=== PATIENT | male | born 1945 | race Hispanic/Latino ===

== ENCOUNTER → 2018-11-20 | Outpatient (CLI) | payer OTHER ==
[~2018-11-20] VITALS: Ht 170.2 cm; Wt 82.1 kg
[~2018-11-20] MED LIST: AEC81 PO; ATOR40TA69 PO; DOXA2TAB2 PO; DUTA.5 PO; EPLE25TA10 PO; FLUT1AER IH; FURO-151 PO; GLIP5TAB11 PO; LINA145C PO; LISI2.5T2 PO; METO-391 PO; NITR0.4T50 SL; OMEP10SU2 PO; REGADENOSON 0.4 MG/5 ML PF SYG IVP SCH; SACU1TAB PO; VENL150T3 PO
== END | disposition home or self-care (01) ==
LOC: SHCH 08:35
PROVIDERS: ATTEND Internal Medicine Cardiovascular Disease
DX: I21.19 ST elevation (STEMI) myocardial infarction involving other coronary artery of inferior wall (principal)
CPT/HCPCS: 78452; 93017; 96374; A9500 ×2; J2785

== ENCOUNTER 2019-11-28 05:57 | Day surgery (SDC) | payer OTHER ==
[2019-11-28] VITALS (9 sets, daily range): BP systolic 58–118; BP diastolic 26–68
[~2019-11-28 05:57] MED LIST changes: -REGADENOSON 0.4 MG/5 ML PF SYG IVP SCH
[2019-11-28] MEDS ORDERED: SODIUM CHLORIDE 0.9% 1000ML 1,000 ML IV ONE (06:08)
[2019-11-28] MEDS ORDERED: ACET-66 PO (07:28)
[2019-11-28] MEDS ORDERED: ALBU90AE IH (07:28)
[2019-11-28] MEDS ORDERED: FAMO40TA7 PO (07:28)
[2019-11-28] MEDS ORDERED: FLUT16H NASAL (07:28)
[2019-11-28] MEDS ORDERED: NAPR-1023 PO (07:28)
[2019-11-28] MEDS ORDERED: ESCI10TA PO (07:28)
[2019-11-28] MEDS ORDERED: UMEC1DIS IH (07:28)
[2019-11-28] MEDS ORDERED: GLIP2.5T PO (07:28)
[2019-11-28] MEDS ORDERED: METO-408 PO (07:30)
[2019-11-28] MEDS ORDERED: PROPOFOL 10 MG/ML 20ML VIAL IV ONE (08:20)
[2019-11-28] MEDS ORDERED: MIDAZOLAM HCL 1 MG/ML 2ML VIAL ONE (08:27)
--- NOTE | 2019-11-28 08:47 | NUR ---
PT DIFFICULT TO AROUSE..BP LOW. I HAVE CALLED RADHA SAW SUPERINTENDENT
--- NOTE | 2019-11-28 08:50 | NUR ---
RADHA ASPHALT SMOOTHER NOTIFIED AND AT BEDSIDE NOW. PT HAD LOW BP AND WAS STILL DROWSY . RADHA ASPHALT SMOOTHER INTERVENED
--- NOTE | 2019-11-28 09:35 | NUR ---
PT DISCHARGED HOME WITH . I GAVE THEM BOTH PRINTED AND VERBAL DISCHARGE INSTRUCTIONS . VERBALIZED UNDERSTANDING. PT STATUS IMPROVED-STABLE
== END 2019-11-28 09:35 | disposition home or self-care (01) ==
LOC: DAH 05:57 → ENDO 05:57
PROVIDERS: ATTEND Internal Medicine Gastroenterology
DX: K59.04 Chronic idiopathic constipation (principal); Z20.828 Contact with and (suspected) exposure to other viral communicable diseases; D12.3 Benign neoplasm of transverse colon; K64.0 First degree hemorrhoids; K57.30 Diverticulosis of large intestine without perforation or abscess without bleeding; K21.9 Gastro-esophageal reflux disease without esophagitis; K44.9 Diaphragmatic hernia without obstruction or gangrene; I11.0 Hypertensive heart disease with heart failure; I50.9 Heart failure, unspecified; I25.10 Atherosclerotic heart disease of native coronary artery without angina pectoris; J44.9 Chronic obstructive pulmonary disease, unspecified; Z95.5 Presence of coronary angioplasty implant and graft; Z86.010 Personal history of colon polyps; Z79.82 Long term (current) use of aspirin; Z79.899 Other long term (current) drug therapy; Z11.59 Encounter for screening for other viral diseases
CPT/HCPCS: 36415; 45385; 82948 ×2; 88305; 93005; A4215; A4221; A4222; A4223; A4606; A4620; A4657; A4663; J2250; J2704; J7030; U0003; 43200

== ENCOUNTER → 2020-09-16 | Outpatient (CLI) | payer OTHER ==
[~2020-09-16] MED LIST changes: +ACET-66 PO; +ALBU90AE IH; -DOXA2TAB2 PO; -DUTA.5 PO; -EPLE25TA10 PO; +ESCI10TA PO; +FAMO40TA7 PO; +FLUT16H NASAL; -FLUT1AER IH; +GLIP2.5T PO; -GLIP5TAB11 PO; +IOHEXOL 350 MG/ML 100ML INFUS..BTL IV ONE; +IOHEXOL-350 50ML VIAL IV ONE; -LISI2.5T2 PO; -METO-391 PO; +METO-408 PO; +NAPR-1023 PO; -NITR0.4T50 SL; -OMEP10SU2 PO; +UMEC1DIS IH; -VENL150T3 PO
== END | disposition home or self-care (01) ==
LOC: RAH 07:32
PROVIDERS: ATTEND Internal Medicine Cardiovascular Disease
DX: I70.0 Atherosclerosis of aorta (principal); I70.8 Atherosclerosis of other arteries; I70.201 Unspecified atherosclerosis of native arteries of extremities, right leg; K76.89 Other specified diseases of liver; K57.30 Diverticulosis of large intestine without perforation or abscess without bleeding
CPT/HCPCS: 75635; Q9967 ×2

== ENCOUNTER → 2021-10-12 | Outpatient (CLI) | payer OTHER ==
[~2021-10-12] VITALS: Ht 170.2 cm; Wt 87.5 kg
[~2021-10-12] MED LIST changes: -IOHEXOL 350 MG/ML 100ML INFUS..BTL IV ONE; -IOHEXOL-350 50ML VIAL IV ONE; +REGADENOSON 0.4 MG/5 ML PF SYG IVP SCH
== END ==
LOC: SHCH 07:57
PROVIDERS: ATTEND Internal Medicine Cardiovascular Disease
DX: I25.5 Ischemic cardiomyopathy (principal)
CPT/HCPCS: 78452; 93017; 96374; A9500 ×2; J2785

== ENCOUNTER 2023-04-05 15:40 | Observation (INO) | payer OTHER ==
[~2023-04-05] VITALS: Ht 170.2 cm; Wt 85.6 kg
[~2023-04-05 15:40] MED LIST changes: -AEC81 PO; +CLOP75TA32 PO; +DAPA5TAB PO; +DOXA4TAB3 PO; -FAMO40TA7 PO; -FLUT16H NASAL; +FLUT1BLS3 IH; -FURO-151 PO; +FURO20TA4 PO; -GLIP2.5T PO; -NAPR-1023 PO; +OMEP-420 PO; -REGADENOSON 0.4 MG/5 ML PF SYG IVP SCH; -UMEC1DIS IH
[2023-04-05 16:21] LABS: BASOPHILS # (AUTO) 0.03 K/uL (0.00-0.20); BASOPHILS % (AUTO) 0.4 % (0.0-5.0); EOSINOPHILS # (AUTO) 0.07 K/uL (0.00-0.70); EOSINOPHILS % (AUTO) 0.9 % (0.0-8.0); HEMATOCRIT 47.3 % (42-54); IMMATURE GRANULOCYTE ABSOLUTE 0.02 K/uL (0-1); LYMPHOCYTES # (AUTO) 1.9 K/uL (1.0-4.8); LYMPHOCYTES % (AUTO) 24.6 % (21.0-51.0); MEAN CORPUSCULAR HEMOGLOBIN 28.2 pg (27.0-33.0); MEAN CORPUSCULAR HGB CONC 32.8 g/dL (32.0-36.0); MONOCYTES # (AUTO) 0.6 K/uL (0.1-1.0); MONOCYTES % (AUTO) 7.8 % (3.0-13.0); NEUTROPHILS # (AUTO) 5.2 K/uL (1.8-7.7); PLATELET COUNT (AUTO) 177 K/uL (130-400); RED CELL DISTRIBUTION WIDTH 14.6 % (11.0-15.5); WHITE BLOOD COUNT (AUTO) 7.9 K/uL (4.8-10.8)
[2023-04-05] MEDS ORDERED: 0.9%NACL 1000ML 1,000 ML IV ONE (16:30)
[2023-04-05 16:48] LABS: CREATININE 1.3 mg/dL (0.5-1.5); POTASSIUM 3.7 mmol/L (3.5-5.1)
[2023-04-05 17:12] LABS: MAGNESIUM 2.1 mg/dL (1.80-2.40); THYROID STIMULATING HORMONE 1.53 uIU/mL (0.36-3.74)
[2023-04-05] MEDS ORDERED: ACETAMINOPHEN 325 MG TAB PO PRN ×2 (19:30)
[2023-04-05] MEDS ORDERED: ONDANSETRON 4MG INJ IV PRN (19:30)
[2023-04-05] MEDS: FAMOTIDINE 20MG TAB PO SCH (20:54)
[2023-04-05 21:24] VITALS: BP 139/79; PULSE 65; RESP 19
[2023-04-05 21:27] VITALS: BP 128/75; PULSE 72; RESP 18
[2023-04-05 21:30] VITALS: BP 138/71; PULSE 65; RESP 19
[2023-04-05] MEDS ORDERED: FAMO40TA7 PO (21:43)
[2023-04-05] MEDS ORDERED: DAPA5TAB PO (21:43)
[2023-04-05] MEDS ORDERED: SACU1TAB PO (21:43)
[2023-04-05] MEDS ORDERED: DOXA4TAB3 PO (21:43)
[2023-04-05] MEDS ORDERED: ACET-66 PO (21:43)
[2023-04-05] MEDS ORDERED: LINA145C PO (21:43)
[2023-04-05] MEDS ORDERED: ATOR-2 PO (21:43)
[2023-04-05] MEDS ORDERED: OMEP40CA21 PO (21:43)
[2023-04-05] MEDS ORDERED: CLOP75TA32 PO (21:43)
[2023-04-05 23:00] VITALS: BP 109/66; PULSE 67; RESP 20
[2023-04-06 03:00] VITALS: BP 134/70; PULSE 67; RESP 20
[2023-04-06 05:48] LABS: INR 0.95 (0.85-1.15); PROTHROMBIN TIME 11.1 SEC (9.6-11.6)
[2023-04-06 05:49] LABS: PARTIAL THROMBOPLASTIN TIME 28.2 SEC (26.3-35.5)
[2023-04-06 06:18] LABS: ALBUMIN 3.2 g/dL (3.5-5.0); BILIRUBIN,TOTAL 0.5 mg/dL (0.2-1.0); CREATININE 1.1 mg/dL (0.5-1.5); MAGNESIUM 2.2 mg/dL (1.80-2.40); POTASSIUM 3.9 mmol/L (3.5-5.1); TOTAL PROTEIN, SERUM 6.6 g/dL (6.0-8.3)
[2023-04-06 08:00] VITALS: BP_SYST 113; BP_SYST 132; BP_DIAS 59; BP_DIAS 79; PULSE 64; PULSE 80; RESP 20; O2SAT 95
[2023-04-06] MEDS ORDERED: ENOXAPARIN SODIUM 30 MG/0.3 ML SQ SCH (09:00)
[2023-04-06] MEDS: FAMOTIDINE 20MG TAB PO SCH (09:22)
[2023-04-06 12:00] VITALS: BP 113/59; PULSE 80; RESP 20
[2023-04-06 16:00] VITALS: BP 139/71; PULSE 66; RESP 20
[2023-04-06] MEDS ORDERED: SACUBITRIL/VALSARTAN 1 EACH TABLET PO SCH (21:00)
[2023-04-06] MEDS ORDERED: ATORVASTATIN 40 MG TABLET PO SCH (21:00)
[2023-04-07] MEDS ORDERED: DOXAZOSIN MESYLATE 2 MG TABLET PO SCH (09:00)
[2023-04-07] MEDS ORDERED: NON-FORMULARY MEDICATION 1 EACH (Famotidine 40 MG) PO SCH (09:00)
[2023-04-07] MEDS ORDERED: PANTOPRAZOLE 40 MG TAB DR PO SCH (09:00)
[2023-04-07] MEDS ORDERED: ACETAMINOPHEN 500 MG TABLET PO SCH (09:00)
[2023-04-07] MEDS ORDERED: NON-FORMULARY MEDICATION 1 EACH (Omeprazole 40 MG) PO SCH (09:00)
[2023-04-07] MEDS ORDERED: CLOPIDOGREL 75MG TAB PO SCH (09:00)
[2023-04-07] MEDS ORDERED: NON-FORMULARY MEDICATION 1 EACH (Doxazosin Mesylate 4 MG) PO SCH (09:00)
[2023-04-07] MEDS ORDERED: NON-FORMULARY MEDICATION 1 EACH (Atorvastatin Calcium 80 MG) PO SCH (09:00)
== END 2023-04-06 16:50 | disposition left against medical advice (07) ==
LOC: EDH 15:40 → EDHIP 19:11 → 3AH 21:14
PROVIDERS: ADMIT Hospitalist; ATTEND Hospitalist
DX: I95.9 Hypotension, unspecified (principal); I11.0 Hypertensive heart disease with heart failure; I50.32 Chronic diastolic (congestive) heart failure; I25.10 Atherosclerotic heart disease of native coronary artery without angina pectoris; E11.9 Type 2 diabetes mellitus without complications; E78.5 Hyperlipidemia, unspecified; J44.9 Chronic obstructive pulmonary disease, unspecified; Z95.5 Presence of coronary angioplasty implant and graft; Z79.899 Other long term (current) drug therapy; Z98.890 Other specified postprocedural states
CPT/HCPCS: 96360; 96361; 99284; 84443; 83735 ×2; 84484; 80048; 85025; 36415 ×2; 93005; 96372; 80053; 83880; 85610; 85730; 82948 ×3; G0378 ×22; A4600; J7030; J1650

== ENCOUNTER → 2023-07-12 | Outpatient (CLI) | payer OTHER ==
[~2023-07-12] MED LIST changes: +ATOR-2 PO; +FAMO40TA7 PO; +OMEP40CA21 PO
[2023-07-12 16:15] LABS: BASOPHILS # (AUTO) 0.04 K/uL (0.00-0.20); BASOPHILS % (AUTO) 0.5 % (0.0-5.0); EOSINOPHILS # (AUTO) 0.04 K/uL (0.00-0.70); EOSINOPHILS % (AUTO) 0.5 % (0.0-8.0); HEMATOCRIT 49.4 % (42-54); IMMATURE GRANULOCYTE ABSOLUTE 0.04 K/uL (0-1); LYMPHOCYTES # (AUTO) 1.6 K/uL (1.0-4.8); LYMPHOCYTES % (AUTO) 21.5 % (21.0-51.0); MEAN CORPUSCULAR HEMOGLOBIN 28.1 pg (27.0-33.0); MEAN CORPUSCULAR HGB CONC 31.4 g/dL (32.0-36.0); MEAN CORPUSCULAR VOLUME 89.7 fL (79-99); MONOCYTES # (AUTO) 0.5 K/uL (0.1-1.0); NEUTROPHILS # (AUTO) 5.2 K/uL (1.8-7.7); PLATELET COUNT (AUTO) 170 K/uL (130-400); RED BLOOD CELL COUNT(AUTO) 5.51 MIL/uL (4.50-6.20); RED CELL DISTRIBUTION WIDTH 14.4 % (11.0-15.5); WHITE BLOOD COUNT (AUTO) 7.4 K/uL (4.8-10.8)
[2023-07-12 16:37] LABS: CREATININE 1.1 mg/dL (0.5-1.5); POTASSIUM 3.8 mmol/L (3.5-5.1); THYROID STIMULATING HORMONE 1.47 uIU/mL (0.36-3.74)
== END | disposition home or self-care (01) ==
LOC: LAB 13:35
PROVIDERS: ATTEND Internal Medicine Cardiovascular Disease
DX: I25.5 Ischemic cardiomyopathy (principal); Z79.899 Other long term (current) drug therapy
CPT/HCPCS: 36415; 80048; 84443; 85025

== ENCOUNTER → 2024-09-18 | Outpatient (CLI) | payer OTHER ==
--- NOTE | 2024-09-19 08:48 | HMCSR ---
APPROVED REPORT EXAM: Two-dimensional and M-mode echocardiogram with Doppler and color Doppler. INDICATION ICD: Ischemic cardiomyopathy I25.5 2D Dimensions RVDd4.5 cmLVEF(%)52.3 (>50%)LVED Vol(simp.)140.0 mL IVSd0.9 (0.7-1.1cm)FS(%)27 %LVES Vol(simp.)70.0 mL LVDd5.7 (3.8-5.6cm)Ao Root(2D)3.3 (2.0-3.7cm)LVEF(%, simp.)50 % PWd0.8 (0.7-1.1cm)LVOT diam2.1 (1.8-2.4cm)LA ESV INDEX (BP)32.92 mL/m2 LVDs4.2 (2.5-4.0cm)IVC diam1.9 cm Aortic Valve AoV Vmax1.6 m/Shandra Peak GR9.7 mmHgLVOT Vmax1.0 m/s AoV VTI0.3 mAo Mean GR5.8 mmHgLVOT VTI0.18 m HOLGER (VMAX)2.1 cm2AVA (VTI) 2.1 cm2 Mitral Valve MV E Vmax54.2 cm/sDECEL Iocx989 ms MV A Vmax97.9 cm/sP 1/2 T78 ms E/A ratio0.6MVA (PHT)2.8 cm2 MR Max PG51 mmHg TDI E/E' Xdsenl35.8E/E' Hkriuzd59.3 Pulmonary Valve PV Vmax0.8 m/sPV VTI0.13 mPV Mean GR2 mmHg PV Peak GR2.6 mmHgPI End Majo. Steve 0.7 cm/s Tricuspid Valve TR Vmax2.9 m/sRAP (EST) 8 xoJwXNUE05.7 mmHg TR Peak GR34.7 mmHg Left Ventricle The left ventricle is mildly dilated. There is normal LV segmental wall motion. There is normal left ventricular wall thickness. LVEF is 50-55%. Stage I diastolic dysfunction. Right Ventricle The right ventricle is dilated. The right ventricular systolic function is normal. Device lead is pre sent in the right ventricle. Atria The left atrium size is normal. The right atrium is dilated. Aortic Valve Aortic valve is trileaflet. Aortic valve leaflets are sclerotic but open well. No aortic regurgitatio n is present. There is no aortic valvular stenosis. Mitral Valve Mitral valve leaflets are sclerotic but open well. Mitral regurgitation is trace. There is no mitral valve stenosis. Tricuspid Valve The tricuspid valve leaflets appear normal. There is trace tricuspid regurgitation. Right ventricular systolic pressure is estimated at 40-50 mmHg. Pulmonic Valve The pulmonic valve leaflets appears normal. There is trace pulmonic valvular regurgitation. Great Vessels The aortic root is normal in size. IVC is dilated and collapses >50% with inspiration. Pericardium No pericardial effusion. Conclusion LVEF is 50-55%. Stage I diastolic dysfunction. Mitral regurgitation is trace. There is trace tricuspid regurgitation. Right ventricular systolic pressure is estimated at 40-50 mmHg.
== END | disposition home or self-care (01) ==
LOC: SHCH 12:49
PROVIDERS: ATTEND Internal Medicine Cardiovascular Disease
DX: I08.0 Rheumatic disorders of both mitral and aortic valves (principal); I25.5 Ischemic cardiomyopathy
CPT/HCPCS: 93306

== ENCOUNTER 2025-04-28 06:54 | Day surgery (SDC) | payer OTHER ==
[2025-04-25 10:57] VITALS: BP 137/69; PULSE 85; RESP 18; TEMP 99.1
[2025-04-25 11:05] LABS: IMMATURE GRANULOCYTE ABSOLUTE 0.02 K/uL (0-1); NUCLEATED RED BLOOD CELLS 0.0 % (0.0-0.19); PLATELET COUNT (AUTO) 190 K/uL (130-400); RED BLOOD CELL COUNT(AUTO) 5.48 MIL/uL (4.50-6.20); RED CELL DISTRIBUTION WIDTH 13.7 % (11.0-15.5); WHITE BLOOD COUNT (AUTO) 6.8 K/uL (4.8-10.8)
[2025-04-25 11:12] LABS: CREATININE 1.1 mg/dL (0.5-1.3); GLOMERULAR FILTR. RATE CALC 68.0 mL/min (>90); GLUCOSE,RANDOM 111.0 mg/dL (70-105); SODIUM SERUM 140.0 mmol/L (136-145); UREA NITROGEN, BLOOD 14.0 mg/dL (7-18)
[2025-04-25 11:28] LABS: INR 1.03 (0.85-1.15)
--- NOTE | 2025-04-25 12:40 | EKG ---
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
[2025-04-28] VITALS (7 sets, daily range): BP systolic 103–139; BP diastolic 54–78; PULSE 70–78; RESP 14–18; TEMP 97.3–97.8
[~2025-04-28] VITALS: Ht 170.2 cm; Wt 83.6 kg
[~2025-04-28 06:54] MED LIST changes: -ACET-66 PO; +ALBU18HF7 IH; -ALBU90AE IH; -ATOR40TA69 PO; +DOXA2TAB2 PO; -DOXA4TAB3 PO; +DRON400T7 PO; -ESCI10TA PO; -FURO20TA4 PO; -METO-408 PO; -OMEP-420 PO
[2025-04-28] MEDS: 0.9%NACL 1000ML 1,000 ML IV SCH (07:08)
[2025-04-28] MEDS ORDERED: LIDOCAINE HCL 1% MDV 50ML VIAL ONE ×2 (07:14→09:12)
[2025-04-28] MEDS ORDERED: IODIXANOL 320 MG/ML 100 ML VIAL ONE (07:14)
[2025-04-28] MEDS ORDERED: SODIUM BICARB 50MEQ 50ML VIAL 50 ML ONE (09:12)
[2025-04-28] MEDS ORDERED: MIDAZOLAM HCL 1 MG/ML 2ML VIAL ONE ×2 (09:40→09:59)
[2025-04-28] MEDS ORDERED: BACITRACIN 1 EACH PACKET TP ONE (10:25)
[2025-04-28] MEDS ORDERED: TRAM50TA4 PO (10:44)
--- NOTE | 2025-04-28 12:38 | NUR ---
Full and complete discharge instructions given to Patient and Family both verbally and in writing. Tolerated fluids and voided in bathroom. PIV removed with catheter tip intact. Post Battery AICD instructions given along with dressing change supplies provided. Patient and voiced understanding to instructions. Pending Friend to pick them up. Addendum: 04/28/25 at 1247 by ALEJANDRA CELIS RN RN W/C to POV with Family to Home.
== END 2025-04-28 12:48 | disposition home or self-care (01) ==
LOC: DAH 06:54
PROVIDERS: ATTEND Internal Medicine Cardiovascular Disease
DX: Z45.02 Encounter for adjustment and management of automatic implantable cardiac defibrillator (principal); I25.5 Ischemic cardiomyopathy; I25.10 Atherosclerotic heart disease of native coronary artery without angina pectoris; E78.5 Hyperlipidemia, unspecified; J44.9 Chronic obstructive pulmonary disease, unspecified; Z79.01 Long term (current) use of anticoagulants; Z83.3 Family history of diabetes mellitus; Z82.49 Family history of ischemic heart disease and other diseases of the circulatory system; Z88.5 Allergy status to narcotic agent; Z79.899 Other long term (current) drug therapy; Z98.890 Other specified postprocedural states
CPT/HCPCS: 80048; 85025; 85610; 85730; 36415; 93005; 99156; 99157 ×3; 33263; A4223 ×3; C1721; J3010; J0690; J0665; J3490 ×2; J2250 ×2; A4215; A6251; A4222; A4221; A4663; A4216; A6258; A4606; J1644; Q9967